=== PATIENT | female | born 1985 | race Two or more races ===

== ENCOUNTER 2017-10-15 09:03 | Emergency (ER) | payer BC, OTHER ==
[~2017-10-15] VITALS: Ht 571.8 cm; Wt 147.0 kg
[2017-10-15 10:12] LABS: BASOPHILS # (AUTO) 0.2 X10'3 (0-0.2); EOSINOPHILS # (AUTO) 0.1 X10'3 (0-0.9); EOSINOPHILS % (AUTO) 0.8 % (0-6); HEMOGLOBIN 17.3 g/dl (12.0-16.0); LYMPHOCYTES # (AUTO) 2.3 X10'3 (1.1-4.8); LYMPHOCYTES % (AUTO) 22.6 % (21-51); MEAN CORPUSCULAR HEMOGLOBIN 32.7 PG (27.0-31.0); MEAN CORPUSCULAR HGB CONC 33.9 % (33.0-36.5); MEAN CORPUSCULAR VOLUME 96.7 FL (78-98); MEAN PLATELET VOLUME 8.7 FL (7.4-10.4); MONOCYTES # (AUTO) 0.7 X10'3 (0-0.9); MONOCYTES % (AUTO) 6.9 % (2-12); NEUTROPHILS # (AUTO) 6.7 X10'3 (1.8-7.7); NEUTROPHILS % (AUTO) 67.7 % (42-75); PLATELET COUNT 367 X10'3 (140-440); RED BLOOD COUNT 5.28 X10'6 (4.20-5.60)
[2017-10-15] MEDS ORDERED: NO HOME MEDS (10:23)
[2017-10-15 10:24] LABS: ALANINE AMINOTRANSFERASE 58 U/L (12-78); ALBUMIN 3.5 G/DL (3.4-5.0); ALBUMIN/GLOBULIN RATIO 0.8 (1.1-1.5); ALKALINE PHOSPHATASE 95 IU/L (46-116); ANION GAP 12 (8-16); ASPARTATE AMINO TRANSFERASE 38 U/L (10-37); BILIRUBIN,TOTAL 0.7 MG/DL (0.1-1.0); BLOOD UREA NITROGEN 10 MG/DL (7-18); BUN/CREATININE RATIO 8.3 (6.6-38.0); CALCIUM 8.9 MG/DL (8.5-10.1); CHLORIDE 105 MMOL/L (99-107); ETHANOL < 0.010 GM/DL (0.0-0.010); GLUCOSE 177 MG/DL (70-104); SODIUM 138 MMOL/L (135-145); TOTAL CARBON DIOXIDE 20.9 MMOL/L (24-32); TOTAL PROTEIN 7.9 G/DL (6.4-8.2); eGFR 53 ML/MIN
[2017-10-15 10:54] LABS: URINE HCG NEGATIVE (NEG)
[2017-10-15 11:02] LABS: URINE AMPHETAMINE SCREEN NEGATIVE (Neg); URINE BARBITUATE SCREEN NEGATIVE (Neg); URINE BENZODIAZEPINES SCREEN NEGATIVE (Neg); URINE CANNABINOID SCREEN NEGATIVE (Neg); URINE COCAINE SCREEN NEGATIVE (Neg); URINE METHADONE SCREEN NEGATIVE (Neg); URINE OPIATE SCREEN NEGATIVE (Neg); URINE PHENCYCLIDINE SCREEN NEGATIVE (Neg)
[2017-10-15] MEDS ORDERED: OLANZapine **IM** 10 mg inj. IM ONE (14:30)
[2017-10-15] MEDS ORDERED: OLAN10TA3 PO (15:46)
[2017-10-15] MEDS ORDERED: LORazepam 1 MG tablet PO ONE (16:40)
[2017-10-15] MEDS: OLANZapine 2.5MG tablet PO SCH (20:06)
[2017-10-16] MEDS: OLANZapine 2.5MG tablet PO PRN (13:56)
[2017-10-16] MEDS: OLANZapine 2.5MG tablet PO SCH (20:23)
[2017-10-17] MEDS: OLANZapine **IM** 10 mg inj. IM PRN (12:37)
[2017-10-17] MEDS: OLANZapine 2.5MG tablet PO SCH (20:44)
[2017-10-17] MEDS: OLANZapine 2.5MG tablet PO PRN (22:42)
[2017-10-18] MEDS: OLANZapine 2.5MG tablet PO SCH (22:18)
[2017-10-19] MEDS: OLANZapine **IM** 10 mg inj. IM PRN (12:34)
[2017-10-19] MEDS ORDERED: haloperidol lactate 5mg/ml inj IM ONE (16:35)
[2017-10-19] MEDS ORDERED: diphenhydrAMINE 50 mg/ml inj IM ONE (16:35)
[2017-10-19] MEDS: OLANZapine 2.5MG tablet PO SCH (21:13)
[2017-10-20] MEDS: OLANZapine 2.5MG tablet PO PRN (19:35)
[2017-10-20] MEDS: OLANZapine 2.5MG tablet PO SCH (20:49)
[2017-10-21] MEDS: OLANZapine 2.5MG tablet PO SCH (21:02)
[2017-10-22] MEDS: OLANZapine 2.5MG tablet PO SCH (20:07)
[2017-10-23] MEDS ORDERED: ibuprofen tablet 400 MG TABLET PO ONE (20:10)
[2017-10-23] MEDS: OLANZapine 2.5MG tablet PO SCH (20:17)
[2017-10-24] MEDS: OLANZapine 2.5MG tablet PO PRN (15:13)
[2017-10-24] MEDS ORDERED: OLANZapine 5mg rapidly disint. tablet PO SCH (21:00)
[2017-10-25 06:33] VITALS: BP 93/59
[2017-10-25] MEDS: OLANZapine 2.5MG tablet PO PRN (15:13)
== END 2017-10-25 15:30 ==
LOC: ER 09:06
DX: F79 Unspecified intellectual disabilities (principal); I10 Essential (primary) hypertension; F31.9 Bipolar disorder, unspecified; F25.0 Schizoaffective disorder, bipolar type; Z79.899 Other long term (current) drug therapy; Z56.0 Unemployment, unspecified
CPT/HCPCS: 36415; 80053; 80305; 80320; 81025; 84443; 85025; 96372; 99285